=== PATIENT | male | born 1970 | race Caucasian/White ===

== ENCOUNTER 2022-12-18 10:08 | Emergency (ER) | payer OTHER, SELFPAY ==
[2022-12-18 10:09] VITALS: BP 167/112; PULSE 106; RESP 22; TEMP 36.2; O2SAT 97; BMI 33.7
--- NOTE | 2022-12-18 10:13 | ED.RN ---
PATIENT STATES THIS IS A WORK RELATED INJURY BUT IT IS NOT BEING FILED UNDER WORKERS COMP; DENIES NEED FOR TESTING.
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
[2022-12-18] MEDS: oxyCODONE 5 MG Tablet PO (10:38)
[2022-12-18 11:15] VITALS: RESP 18
== END 2022-12-18 11:16 | disposition home or self-care (01) ==
PROVIDERS: Emergency Provider Emergency Medicine; PCP Family Medicine; Visit Provider Emergency Medicine
DX: M19.011 Primary osteoarthritis, right shoulder (principal); M25.511 Pain in right shoulder; V69.9XXA Occupant (driver) (passenger) of heavy transport vehicle injured in unspecified traffic accident, initial encounter
CPT/HCPCS: 73030; 99283

== ENCOUNTER 2023-02-02 09:15 | Day surgery (SDC) | payer OTHER, SELFPAY ==
[2023-02-02] MEDS: Lactated Ringers 1,000 ML 15 ML IV (10:05)
[2023-02-02 10:06] VITALS: BP 137/89; PULSE 78; RESP 18; TEMP 36.8; O2SAT 99; BMI 33.3
[2023-02-02] MEDS: Cefazolin 2 GM in 0.9% Normal Saline 100 ML IV (11:30)
[2023-02-02] MEDS: Epinephrine (1 mg/ml) 1 MG/ML VIAL (11:30)
[2023-02-02] MEDS: Bupivacaine 0.25% 30 ML Vial (14:26)
[2023-02-02 14:58] VITALS: BP 127/88; BP 137/89; PULSE 84; RESP 16; TEMP 36.3; O2SAT 92
[2023-02-02 15:00] VITALS: BP 126/80; BP 137/89; PULSE 78; RESP 16; O2SAT 95
[2023-02-02 15:15] VITALS: BP 131/81; BP 137/89; PULSE 81; RESP 16; O2SAT 94
[2023-02-02 15:30] VITALS: BP 131/83; BP 137/89; PULSE 82; RESP 16; TEMP 36.7; O2SAT 96
[2023-02-02 16:30] VITALS: BP 122/84; BP 137/89; PULSE 87; RESP 16; TEMP 36.8; O2SAT 92
--- NOTE | 2023-02-02 16:45 | DCINST_ITS ---
Discharge Instructions Follow Up Care Test Results: Test results from this visit will be discussed in further detail at your follow- up appointment, if applicable. Discharge Plan Admission Attending Provider: Andres Monk Primary Care Provider: Jose Ignacio Discharge Orders/Prescriptions Prescriptions: No Action NK Referrals / Follow Up: Jose Ignacio MD [Primary Care Provider] - Disposition Disposition (needs filled in before D/C Order can be placed): Home, Self Care
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
== END 2023-02-02 16:42 | disposition home or self-care (01) ==
PROVIDERS: PCP Family Medicine; Referring Provider Student in an Organized Health Care Education/Training Program; Visit Provider Student in an Organized Health Care Education/Training Program
PROC: (CPT 29827; principal; 2023-02-02 11:25)
DX: S46.011A Strain of muscle(s) and tendon(s) of the rotator cuff of right shoulder, initial encounter (principal); M75.21 Bicipital tendinitis, right shoulder; S43.431A Superior glenoid labrum lesion of right shoulder, initial encounter; V59.9XXA Occupant (driver) (passenger) of pick-up truck or van injured in unspecified traffic accident, initial encounter
CPT/HCPCS: 29827; 29807; 23430; 64415; 01630; C1713; J7120; J2405